=== PATIENT | female | born 1950 ===

== ENCOUNTER 2020-09-28 17:00 | Inpatient (IN) | payer MEDICARE, MEDICAID ==
[2020-09-28 20:25] VITALS: BP 156/76
[2020-09-28] MEDS ORDERED: MONT10TA17 PO (22:01)
[2020-09-28] MEDS ORDERED: LEVA1.2543 INH (22:01)
[2020-09-28] MEDS ORDERED: GABA-827 PO (22:01)
[2020-09-28] MEDS ORDERED: BACL20TA PO (22:01)
[2020-09-28] MEDS ORDERED: INSU100C5 SQ-INSULIN (22:01)
[2020-09-28] MEDS ORDERED: METO-93 PO (22:01)
[2020-09-28] MEDS ORDERED: INSU100I13 SQ-INSULIN ×2 (22:01)
[2020-09-28] MEDS ORDERED: FLUC150T PO (22:01)
[2020-09-28] MEDS ORDERED: DOXA1TAB2 PO (22:01)
[2020-09-28] MEDS ORDERED: FORM1POW3 INH (22:01)
[2020-09-28] MEDS ORDERED: BUPR300T94 PO (22:01)
[2020-09-28] MEDS ORDERED: PROC10TA2 PO (22:01)
[2020-09-28] MEDS ORDERED: BUDE0.5A11 INH (22:01)
[2020-09-28] MEDS ORDERED: CITA40TA5 PO (22:01)
[2020-09-28] MEDS ORDERED: SIMV20TA19 PO (22:01)
[2020-09-28] MEDS ORDERED: SULF1TAB24 PO (22:01)
[2020-09-28] MEDS ORDERED: FURO40TA6 PO (22:01)
[2020-09-28] MEDS ORDERED: ROFL250T PO (22:01)
[2020-09-28] MEDS ORDERED: DOCUSATE 100 MG CAPSULE PO PRN (22:30)
[2020-09-28] MEDS ORDERED: ALBUTEROL SULFATE 2.5 MG/3 ML NEB SCH (22:30)
[2020-09-28 23:00] LABS: BASOPHILS % (AUTO) 1 % (0-1); EOSINOPHILS % (AUTO) 0 % (1-7); LYMPHOCYTES % (AUTO) 11 % (22-44); MEAN CORPUSCULAR HEMOGLOBIN 26.5 pg (27.0-34.8); MONOCYTES % (AUTO) 8 % (2-9); NEUTROPHILS % (AUTO) 79 % (42-75); PLATELET COUNT 280 x10^3/uL (130-400); RED BLOOD COUNT 4.39 x10^6/uL (3.82-5.3); RED CELL DISTRIBUTION WIDTH 15.8 % (9.6-15.2)
[2020-09-28 23:01] LABS: MD NO
[2020-09-28 23:09] LABS: ALANINE AMINOTRANSFERASE 23 U/L (12-78); ALBUMIN 2.8 g/dL (3.4-5.0); ANION GAP 6 mmol/L (5-15); CALCIUM 8.8 mg/dL (8.5-10.1); CHLORIDE 112 mmol/L (98-107); CREATININE 2.52 mg/dL (0.55-1.02)
[2020-09-28] MEDS: LEVOFLOXACIN/PMX 500MG/100ML 100 ML IV SCH (23:16)
[2020-09-28 23:19] LABS: ALKALINE PHOSPHATASE 86 U/L (45-117); BILIRUBIN,TOTAL 0.7 mg/dL (0.2-1.0); TOTAL PROTEIN 6.9 g/dL (6.4-8.2)
[2020-09-29 01:29] VITALS: BP 184/71
[2020-09-29 03:51] LABS: AMPHETAMINE SCREEN, URINE Negative (Negative); BARBITURATE SCREEN, URINE Negative (Negative); BENZODIAZEPINE SCREEN, URINE Negative (Negative); CANNABINOID SCREEN, URINE Negative (Negative); CHLORIDE,URINE RANDOM 53 mmol/L; COCAINE SCREEN, URINE Negative (Negative); METHADONE SCREEN, URINE Negative (Negative); OPIATE SCREEN, URINE Negative (Negative); POTASSIUM,URINE RANDOM 48 mmol/L; SODIUM,URINE RANDOM 47 mmol/L
[2020-09-29 05:06] LABS: BASOPHILS % (AUTO) 1 % (0-1); EOSINOPHILS % (AUTO) 1 % (1-7); LYMPHOCYTES % (AUTO) 12 % (22-44); MEAN CORPUSCULAR HEMOGLOBIN 27.1 pg (27.0-34.8); MEAN CORPUSCULAR HGB CONC 32.9 g/dL (32.4-35.8); MEAN PLATELET VOLUME 9.1 fL (7.4-10.4); MONOCYTES % (AUTO) 9 % (2-9); NEUTROPHILS % (AUTO) 78 % (42-75); PLATELET COUNT 252 x10^3/uL (130-400); RED BLOOD COUNT 4.27 x10^6/uL (3.82-5.3); RED CELL DISTRIBUTION WIDTH 15.8 % (9.6-15.2)
[2020-09-29 05:07] LABS: MD NO
[2020-09-29 05:11] LABS: ANION GAP 9 mmol/L (5-15); CALCIUM 8.6 mg/dL (8.5-10.1); CHLORIDE 110 mmol/L (98-107); CREATININE 2.29 mg/dL (0.55-1.02)
[2020-09-29] MEDS: INSULIN LISPRO 100 UNITS/ML, PEN SQ-INSULIN SCH ×4 (08:15→22:17)
[2020-09-29] MEDS: ROFLUMILAST 250 MCG PO SCH (08:23)
[2020-09-29] MEDS: DOXAZOSIN 1MG TABLET PO SCH (08:24)
[2020-09-29] MEDS: METOPROLOL SUCCINATE 50 MG TAB.ER.24H PO SCH (08:24)
[2020-09-29] MEDS: MONTELUKAST 10 MG TABLET PO SCH (08:24)
[2020-09-29 08:44] VITALS: BP 191/73
[2020-09-29] MEDS ORDERED: FORMOTEROL FUMARATE 20 MCG INH SCH (09:00)
[2020-09-29] MEDS ORDERED: BUDESONIDE 0.5 MG/2 ML INHA INH SCH (09:00)
[2020-09-29 09:31] VITALS: BP 182/73
[2020-09-29] MEDS: SALMETEROL INH 50MCG/INH DISK.W.DEV INH SCH ×2 (11:06→20:20)
[2020-09-29] MEDS: TIOTROPIUM BROMIDE 18 MCG/INH INH SCH (11:07)
[2020-09-29] MEDS ORDERED: FUROSEMIDE 40 MG/4 ML IV ONE (11:30)
[2020-09-29 12:25] VITALS: BP 158/74
[2020-09-29] MEDS: HEPARIN 5,000 UNITS/ML, 1ML SQ SCH ×2 (13:39→20:15)
[2020-09-29 19:16] VITALS: BP 164/98
[2020-09-29] MEDS: SIMVASTATIN 20 MG TABLET PO SCH (20:16)
[2020-09-29] MEDS: INSULIN GLARGINE 100 UNITS/ML, PEN SQ-INSULIN SCH (22:16)
[2020-09-29] MEDS: LEVOFLOXACIN/PMX 500MG/100ML 100 ML IV SCH (23:08)
[2020-09-30 02:35] VITALS: BP 164/70
[2020-09-30] MEDS: HEPARIN 5,000 UNITS/ML, 1ML SQ SCH ×3 (03:44→21:15)
[2020-09-30 06:31] VITALS: BP 176/80
[2020-09-30 06:32] LABS: BASOPHILS % (AUTO) 1 % (0-1); EOSINOPHILS % (AUTO) 2 % (1-7); LYMPHOCYTES % (AUTO) 10 % (22-44); MEAN CORPUSCULAR HEMOGLOBIN 27.1 pg (27.0-34.8); MEAN PLATELET VOLUME 8.9 fL (7.4-10.4); MONOCYTES % (AUTO) 8 % (2-9); NEUTROPHILS % (AUTO) 79 % (42-75); PLATELET COUNT 266 x10^3/uL (130-400); RED BLOOD COUNT 4.42 x10^6/uL (3.82-5.3); RED CELL DISTRIBUTION WIDTH 15.6 % (9.6-15.2)
[2020-09-30 06:36] LABS: MD NO
[2020-09-30 06:41] LABS: ALBUMIN 2.5 g/dL (3.4-5.0); ANION GAP 7 mmol/L (5-15); CALCIUM 8.4 mg/dL (8.5-10.1); CHLORIDE 108 mmol/L (98-107)
[2020-09-30 06:46] LABS: ALANINE AMINOTRANSFERASE 24 U/L (12-78); ALKALINE PHOSPHATASE 80 U/L (45-117); BILIRUBIN,TOTAL 0.7 mg/dL (0.2-1.0); CREATININE 2.03 mg/dL (0.55-1.02); TOTAL PROTEIN 6.5 g/dL (6.4-8.2)
[2020-09-30] MEDS: INSULIN LISPRO 100 UNITS/ML, PEN SQ-INSULIN SCH ×4 (07:00→21:26)
[2020-09-30] MEDS: MONTELUKAST 10 MG TABLET PO SCH (07:36)
[2020-09-30] MEDS: METOPROLOL SUCCINATE 50 MG TAB.ER.24H PO SCH (07:36)
[2020-09-30] MEDS: DOXAZOSIN 1MG TABLET PO SCH (07:37)
[2020-09-30] MEDS: TIOTROPIUM BROMIDE 18 MCG/INH INH SCH (07:37)
[2020-09-30] MEDS: ROFLUMILAST 250 MCG PO SCH (07:37)
[2020-09-30] MEDS: SALMETEROL INH 50MCG/INH DISK.W.DEV INH SCH ×2 (07:37→21:27)
[2020-09-30 12:05] VITALS: BP 149/61
[2020-09-30] MEDS ORDERED: FUROSEMIDE 20 MG/2 ML IV ONE (15:30)
[2020-09-30 19:13] VITALS: BP 169/79
[2020-09-30] MEDS: SIMVASTATIN 20 MG TABLET PO SCH (21:15)
[2020-09-30] MEDS: INSULIN GLARGINE 100 UNITS/ML, PEN SQ-INSULIN SCH (21:27)
[2020-09-30] MEDS: LEVOFLOXACIN/PMX 500MG/100ML 100 ML IV SCH (23:44)
[2020-10-01 01:04] VITALS: BP 178/80
[2020-10-01] MEDS: hydrALAzine 20 MG/ML, 1ML IV PRN (01:25)
[2020-10-01] MEDS: HEPARIN 5,000 UNITS/ML, 1ML SQ SCH ×3 (03:55→19:46)
[2020-10-01 05:53] LABS: ANION GAP 8 mmol/L (5-15); CALCIUM 8.8 mg/dL (8.5-10.1); CHLORIDE 104 mmol/L (98-107)
[2020-10-01 05:55] LABS: CREATININE 1.99 mg/dL (0.55-1.02)
[2020-10-01 06:37] VITALS: BP 184/71
[2020-10-01] MEDS: INSULIN LISPRO 100 UNITS/ML, PEN SQ-INSULIN SCH ×4 (08:18→20:03)
[2020-10-01] MEDS: TIOTROPIUM BROMIDE 18 MCG/INH INH SCH (08:19)
[2020-10-01] MEDS: SALMETEROL INH 50MCG/INH DISK.W.DEV INH SCH ×2 (08:19→19:49)
[2020-10-01] MEDS: METOPROLOL SUCCINATE 50 MG TAB.ER.24H PO SCH (08:20)
[2020-10-01] MEDS: ROFLUMILAST 250 MCG PO SCH (08:20)
[2020-10-01] MEDS: DOXAZOSIN 1MG TABLET PO SCH (08:20)
[2020-10-01] MEDS: MONTELUKAST 10 MG TABLET PO SCH (08:20)
[2020-10-01] MEDS ORDERED: FLUCONAZOLE 50 MG TABLET PO ONE (09:00)
[2020-10-01 09:29] VITALS: BP 160/72
[2020-10-01 12:08] VITALS: BP 153/76
[2020-10-01] MEDS ORDERED: FLUC150T2 PO (16:55)
[2020-10-01 19:35] VITALS: BP 157/72
[2020-10-01] MEDS: INSULIN GLARGINE 100 UNITS/ML, PEN SQ-INSULIN SCH (20:03)
[2020-10-01] MEDS: SIMVASTATIN 20 MG TABLET PO SCH (20:10)
[2020-10-02 02:34] VITALS: BP 172/80
[2020-10-02] MEDS: hydrALAzine 20 MG/ML, 1ML IV PRN (02:55)
[2020-10-02] MEDS: HEPARIN 5,000 UNITS/ML, 1ML SQ SCH (02:55)
[2020-10-02 06:51] VITALS: BP 186/64
[2020-10-02] MEDS: INSULIN LISPRO 100 UNITS/ML, PEN SQ-INSULIN SCH (07:00)
[2020-10-02] MEDS: DOXAZOSIN 1MG TABLET PO SCH (08:49)
[2020-10-02] MEDS: MONTELUKAST 10 MG TABLET PO SCH (08:49)
[2020-10-02] MEDS: METOPROLOL SUCCINATE 50 MG TAB.ER.24H PO SCH (08:49)
[2020-10-02] MEDS: TIOTROPIUM BROMIDE 18 MCG/INH INH SCH (08:50)
[2020-10-02] MEDS: SALMETEROL INH 50MCG/INH DISK.W.DEV INH SCH (08:50)
[2020-10-04] MEDS ORDERED: FLUCONAZOLE 100 MG TABLET PO ONE (09:00)
== END 2020-10-02 10:30 | disposition home or self-care (01) | DRG 291 ==
LOC: 4EST 20:37 → DCLOUNGE 10-02 10:19
PROVIDERS: ADMIT Hospitalist; ATTEND Family Medicine
DX: I11.0 Hypertensive heart disease with heart failure (principal); G93.41 Metabolic encephalopathy; N17.0 Acute kidney failure with tubular necrosis; I50.33 Acute on chronic diastolic (congestive) heart failure; I16.0 Hypertensive urgency; Z66 Do not resuscitate; N18.9 Chronic kidney disease, unspecified; J44.9 Chronic obstructive pulmonary disease, unspecified; E11.22 Type 2 diabetes mellitus with diabetic chronic kidney disease; F32.9 Major depressive disorder, single episode, unspecified; R01.1 Cardiac murmur, unspecified; E78.5 Hyperlipidemia, unspecified; Z88.8 Allergy status to other drugs, medicaments and biological substances
CPT/HCPCS: 36415; 36600; 70450; 71045; 76770; 80048; 80053; 80307; 82140; 82436; 82803; 82962; 83605; 83735; 83880; 84133; 84145; 84300; 84443; 85025; 87040; 93005; 93306; G0378; J1644; J1940; J1956; 92522-GN; J0360; J1815